=== PATIENT | male | born 1950 | race Caucasian/White ===

== ENCOUNTER 2024-12-20 17:09 | Emergency (ER) | payer MEDICARE, SELFPAY ==
--- OUTSIDE RECORDS SUMMARY | 2024-12-20 17:17 | XMS_ITS | Encounter Summary ---
Author Organization [facility] Address [address] [facility] [place] [address] Care Team Providers Care Geoduck Diver Name Role Phone Jr Morgan MD Primary Care Provider [phone] Encounter Details Date Type Department Care Team (Late st Contact Info) Description 03/07/2020 Lab Requisition [facility] D[facility] Lab [address] [facility], [place] [address] Gene Reardon [place] [address] Social History Tobacco Use Types Packs/Day Years Used Date Smoking Tobacco: Never Smokeless Tobacco: Never Alcohol Use Standard Drinks/Week Comments Yes 0 (1 standard drink = 0.6 oz pur e alcohol) Sex and Gender Information Value Date Recorded Sex Assigned at Not on file Gender Identity Not on file Sexual Orientation Not on file documented as of this encounter Plan of Treatment Not on file documented as of this encounter Procedures Procedure Name Priority Date/Time Associated Diagnosis Comments DERMATOPATHOLOGY Routine 03/06/2020 12:0 0 AM CDT documented in this encounter Results * DERMATOPATHOLOGY (03/06/2020 12:00 AM CDT) Case Report Dermatopathology Report Case: [id number] Authorizing Provider: Gene Reardon MD Collected: 03/06/2020 12:00 AM Ordering Location: [facility] Derm[facility] Lab Received: 03/07/2020 01:08 PM Pathologist: Ama Bridges MD Specimen: Skin, left frontal temporal scalp 0 4:14 PM CDT DERMATOPATHOLOGY LABORATORY Final Diagnosis Specimen A. SKIN, left frontal temporal scalp: DERMAL FIBROSIS (L90.5) (see microscopic description) 0 4:14 PM CDT DERMATOPATHOLOGY LABORATORY Clinical History R/O SCC,Ba 0 4:14 PM CDT DERMATOPATHOLOGY LABORATORY Gross Description Specimen A: Received is one formalin filled container labeled with the patient's name and designated left frontal temporal scalp. The specimen consists of a shave biopsy measuring 5x5x1 mm. Jar 0. 0 4:14 PM CDT DERMATOPATHOLOGY LABORATORY Microscopic Description Specimen A. SKIN, left frontal temporal scalp: The epidermis is unremarkable. There is focal dermal fibrosis. Tumor is not present in the sections examined. Additional deeper sections were obtained and reviewed. 0 4:14 PM CDT DERMATOPATHOLOGY LABORATORY Disclaimer An external and internal positive and negative controls are appropriate for the histochemical, immunohistochemical and immunofluorescence stain(s) in this case (if any), except where stated explicitly. The performance characteristics of the stain(s) cited in this report were developed and its performance characteristic determined by the Dermatopathology Laboratory at [facility], directed by Dr. Yang Bridges. These tests need not be, and therefore are not, approved by the [place] Food and Drug Administration. The tests are used for clinical purposes. Billing Codes Specimen Charges Stain Charges 64477 1 0 4:14 PM CDT DERMATOPATHOLOGY LABORATORY Embedded Images 0 4:14 PM CDT DERMATOPATHOLOGY LABORATORY Pathology/Cytolog y TISSUE SPECIMEN FROM SKIN / Unknown 03/06/2020 03/07/2020 1:08 PM CDT Gene Reardon MD LAB - PATHOLOGY/CYTO LOGY ORDERABLES DERMATOPATHOLOGY LABORATORY [facility] - Department of Dermatology Sprinkler Worker [place]/[address] [phone] documented in this encounter Visit Diagnoses Not on filedocumented in this encounter Care Teams Geoduck Diver Relationship Specialty Start Date End Date Jr Morgan MD PCP - General 08/27/18 documented as of this encounter
--- OUTSIDE RECORDS SUMMARY | 2024-12-20 17:17 | XMS_ITS | Encounter Summary ---
Author Organization [facility] Address [address] [place] [address] Care Team Providers Care Telephone Solicitor Supervisor Name Role Phone Jr Morgan MD Primary Care Provider [phone] Encounter Details Date Type Department Care Team (Late st Contact Info) Description 02/26/2006 Outpatient [facility] [place] [address] [place] [address] Star Hickman MD [address] [place] [address] Social History Tobacco Use Types Packs/Day Years Used Date Smoking Tobacco: Never Assessed Sex and Gender Information Value Date Recorded Sex Assigned at Not on file Legal Sex Male 2:57 AM TRACK HELPER Gender Identity Not on file Sexual Orientation Not on file documented as of this encounter Plan of Treatment Upcoming Encounters Date Type Department Care Team (Late st Contact Info) Description 01/09/2025 1:00 PM CDT Appointment [facility] Supp Svcs Blood Flow [address] [place] [address] Dutch oCx MD [address] [facility] [address] [place] [address] 01/09/2025 1:45 PM CDT [facility] [address] [facility] [address] [place] [address] Dutch Cox MD [address] [facility] [address] [place] [address] 02/23/2025 9:00 AM CDT Office Visit [facility] [address] [facility] [facility] [place] [address] Lazaro Jones MD [address] [place] [address] 03/02/2025 9:40 AM CDT Office Visit [facility] Primary [facility] [address] [place] [address] [address] [place] [address] Jr Morgan MD [address] [facility] [address] [place] [address] documented as of this encounter Visit Diagnoses Not on filedocumented in this encounter Additional Health Concerns Infection Onset Date Last Indicated Resolved Time R/O COVID-19 09/18/2021 09/18/2021 09/25/2021 1:16 AM TRACK HELPER documented as of this encounter Care Teams Telephone Solicitor Supervisor Relationship Specialty Start Date End Date Jr Morgan MD PCP - General Internal Medicine 06/28/18 documented as of this encounter
--- OUTSIDE RECORDS SUMMARY | 2024-12-20 17:17 | XMS_ITS | Clinical Summary ---
Author Organization [facility] [employer] Address [address] [place] [address] Care Team Providers Care Digital Communications Manager Name Role Phone Jr Morgan MD Primary Care Provider [phone] Source Comments [facility],non-owned Affiliates and Associated Physician Practices is amultiple site organization consisting of ambulatory clinics and hospital sitesin [place], [place], [place] and [place]. This disclosure is being madepursuant to the Care Everywhere program and may not contain all information available regarding this patient. Last updated 18.[facility] [employer] Allergies Active Allergy Reactions Criticality Noted Date Comments Captopril Swelling,Other Low 05/02/2015 Tizanidine Dizziness 05/27/2018 Caused him to have nightmares after surgery Medications * Be aware that medications may not be up to date on this document. Alwaysverify current medications with the patient. Medication Sig Dispensed Refills Start Date End Date Status acetaminophen (TYLENOL) 500 MG tablet Take 1,000 mg by mouth. 08/21/2017 Active loratadine (CLARITIN) 10 MG tablet Take 10 mg by mouth. 08/21/2017 Active aspirin (ASPIRIN) 325 MG tablet Take 81 mg by mouth Active atorvastatin (LIPITOR) 40 MG tablet TAKE 1 TABLET BY MOUTH LATE IN THE DAILY 07/04/2019 Active diazePAM (VALIUM) 5 MG tablet TAKE 1 OR 2 TABLETS BY MOUTH 4 TIMES DAILY NEEDED FOR MUSCLE SPASM 06/10/2019 Active fluticasone propionate (FLONASE) 50 MCG/ACT nasal spray 1-2 Sprays by Nasal route daily. Use in each nostril as directed. Active LORazepam (ATIVAN) 1 MG tablet TAKE 1 TABLET BY MOUTH EVERY 8 HOURS NEEDED FOR ANXIETY 09/19/2018 Active metoprolol tartrate (LOPRESSOR) 50 MG tablet Take 50 mg by mouth 2 times daily 11/18/2018 Active amLODIPine (NORVASC) 5 MG tablet Take 1 (one) tablet by mouth once daily 04/29/2021 Active clopidogrel (PLAVIX) 75 MG tablet Take 1 (one) tablet by mouth once daily 05/31/2021 Active ezetimibe (Zetia) 10 MG tablet Take 1 (one) tablet by mouth once daily 08/15/2022 Active nitroGLYCERIN (Nitrostat) 0.4 MG tablet Dissolve 1 (one) tablet under the tongue every 5 minutes as needed 12/26/2021 Active atorvastatin (Lipitor) 40 MG tablet Take 1 (one) tablet by mouth once daily 07/22/2022 Active LORazepam (Ativan) 1 MG tablet Take 1 (one) tablet by mouth every 8 hours as needed 02/03/2022 Active PARoxetine (Paxil) 30 MG tablet Take 1 (one) tablet by mouth once daily 03/12/2021 Active tamsulosin (Flomax) 0.4 MG capsuleIndication s:Benign prostatic hyperplasia without lower urinary tract symptoms Take 1 capsule by mouth twice daily 180 capsule 12/19/2024 Active tamsulosin (Flomax) 0.4 MG capsuleIndication s:Benign prostatic hyperplasia without lower urinary tract symptoms Take 1 capsule by mouth twice daily 180 capsule 06/27/2024 5 Discontinued Active Problems Problem Noted Date Diagnosed Date Enlarged prostate without lo wer urinary tract symptoms (luts) 04/08/2017 Overview (12/14/2017): ICD-10 update Encounters Date Type Department Care Team Description 12/17/2024 Refill [facility] - Urology [address] [place] [address] Zainab Becerril, DEVIL DOG-MORTGAGE SERVICING SPECIALIST Refill Request from Last 3 Months Immunizations Name Administration Dates Next Due INFLUENZA VACCINE, TRIV. (AF LURIA, FLUZONE TRIVALENT; 6MO+) (IIV3) 04/29/2019,06/26/2017,09/14/2013 COVID PFIZER BIVALENT 12Y+ 30mcg/0.3ML 06/16/2022 Covid Moderna primary monova lent 12+ yr 0.5mL 12/30/2021,07/07/2021,11/29/2020,2020 HEP A VACCINE, ADULT 02/04/2006,05/27/2005 HEP B VACCINE, ADULT 3 DOSE 02/04/2006, 5 INFLUENZA A [id number] VACCINE 06/22/2017, 5 INFLUENZA VACCINE 05/29/2020,05/29/2020,09/14/19 14 INFLUENZA VACCINE, ADJUVANTE D, TRIV. (FLUAD TRIVALENT; 65Y+) (AIIV3) 04/29/2019 INFLUENZA VACCINE, HIGH-DOSE , QUADR. (FLUZONE HIGH-DOSE QUADRIVALENT; 65Y+), 0.7 ML (HD-IIV4) 06/16/2022,07/24/2021,05/24/2020,2017,06/02/2016,07/02/2015 INFLUENZA VACCINE, QUADR. (F LUZONE; FLULAVAL; FLUARIX; AFLURIA QUADRIVALENT; 6MO+), 0.5 ML (IIV4) 07/09/2017 PNEUMOCOCCAL PCV20 CONJ VAC IM 12/30/2021 PNEUMOCOCCAL PPSV23 07/25/2019,09/14/2011,2010 Pneumococcal Pcv13 Conj 06/02/2016 Td (Adult), 2 Lf Tetanus Tox oid, Adsorbed, Pf 09/14/2014,05/27/2005 Zoster Hzv Vacc Recombinant Inj Im 08/27/2018,,05/29/2018 Family History Medical History Relation Name Comments Other - Cardiac Father Status: Dece ased Other - Cardiac Mother Status: Dece ased Relation Name Status Comments Father Mother Social History Tobacco Use Types Packs/Day Years Used Date Smoking Tobacco: Never Smokeless Tobacco: Never Tobacco Cessation:Counseling Given: Not Answered Alcohol Use Standard Drinks/Week Comments Yes 0 (1 standard drink = 0.6 oz pur e alcohol) Sex and Gender Information Value Date Recorded Sex Assigned at Not on file Gender Identity Not on file Sexual Orientation Not on file Last Filed Vital Signs Vital Sign Reading Time Taken Comments Blood Pressure 133/77 08/22/2022 11:40 AM EMISSIONS TESTING AND REPAIR TECHNICIAN Pulse 52 08/22/2022 11:40 AM EMISSIONS TESTING AND REPAIR TECHNICIAN Temperature 36.9 C (98.4 F) 08/22/2022 11:40 AM EMISSIONS TESTING AND REPAIR TECHNICIAN Respiratory Rate 16 08/24/2020 10:15 AM EMISSIONS TESTING AND REPAIR TECHNICIAN Oxygen Saturation 97% 08/22/2022 11:40 AM EMISSIONS TESTING AND REPAIR TECHNICIAN Inhaled Oxygen Concentration - - Weight 82.2 kg (181 lb 3.2 oz) 08/22/2022 11:40 AM EMISSIONS TESTING AND REPAIR TECHNICIAN Height 170.2 cm (5' 7 ) 08/22/2022 11:40 AM EMISSIONS TESTING AND REPAIR TECHNICIAN Body Mass Index 28.38 08/22/2022 11:40 AM EMISSIONS TESTING AND REPAIR TECHNICIAN Plan of Treatment Health Maintenance Due Date Last Done Comments COLOGUARD (AGES 45-75) - COLON CA SCREENING 1950 COLON MONITORING 1950 COLONOSCOPY - COLON CA SCREENING 1949 CT COLONOGRAPHY - COLON CA SCREENING 1950 Colorectal Cancer Screening 1950 FIT - COLON CA SCREENING 1950 FLEX SIG - COLON CA SCREENING 1950 HEPATITIS C SCREENING 10/17/1967 HEPATITIS B VACCINE (3 of 3 - 19+ 3-dose series) 04/01/2006 02/04/2006, 05/27/2005 DTAP/TDAP/TD VACCINES (1 - Tdap) 09/15/2014 09/14/2014, 05/27/2005 SCREENING FOR DIABETES 08/27/2018 COVID-19 VACCINE ( season) 2024 06/16/2022, 12/30/2021, 07/07/2021, Additional history exists DEPRESSION SCREENING 09/14/2024 MEDICARE AWV CALENDAR YEAR 2024 Respiratory Syncytial Virus (RSV) Vaccine Pt: or over 60 yrs (1 - 1-dose 75+ series) 2024 INFLUENZA VACCINE (Season Ended) 2025 06/16/2022, 07/24/2021, 05/29/2020, Additional history exists ZOSTER VACCINE Completed 08/27/2018, 08/14, 05/29/2018 PNEUMOCOCCAL VACCINE 50+ Completed 022, 07/25/2019, 06/02/2016, Additional history exists HIB VACCINE Aged Out No longer eligi ble based on patient's age to complete this topic HPV VACCINE Aged Out No longer eligi ble based on patient's age to complete this topic MENINGOCOCCAL (Group B) VACCINE SHARED DECISION-MAKING Aged Out No longer eligible based on patient's age to complete this topic MENINGOCOCCAL GROUPS A/C/Y/W VACCINE Aged Out No longer eligible based on patient's age to complete this topic Care Teams Digital Communications Manager Relationship Specialty Start Date End Date Jr Morgan MD PCP - General 08/27/18
--- OUTSIDE RECORDS SUMMARY | 2024-12-20 17:17 | XMS_ITS | Encounter Summary ---
Author Organization [facility] Address [address] [place] [address] Care Team Providers Care Patient Office Rep Name Role Phone Jr Morgan MD Primary Care Provider [phone] Encounter Details Date Type Department Care Team (Late st Contact Info) Description 02/20/2006 Outpatient Historical [facility] [address] [facility] [place] [address] Phani Sampson MD NO ADDRESS ON FILE Social History Tobacco Use Types Packs/Day Years Used Date Smoking Tobacco: Never Assessed Sex and Gender Information Value Date Recorded Sex Assigned at Not on file Legal Sex Male 2:57 AM SHANKER OUT Gender Identity Not on file Sexual Orientation Not on file documented as of this encounter Plan of Treatment Upcoming Encounters Date Type Department Care Team (Late st Contact Info) Description 01/09/2025 1:00 PM CDT Appointment [facility] Supp Svcs Blood Flow [place] [address] Dutch Cox MD [address] [address] 01/09/2025 1:45 PM CDT Office Visit [facility] [employer] [place] [address] [facility] [address] [place] [address] Dutch Cox MD [address] [address] 02/23/2025 9:00 AM CDT Office Visit [facility] At [facility] [address] [place] [address] Lazaro Jones MD [address] [place] [address] 03/02/2025 9:40 AM CDT Office Visit [facility] Primary Care [facility] [address] [facility] [address] [place] [address] Jr Morgan MD [address] [facility] [address] [place] [address] documented as of this encounter Visit Diagnoses Not on filedocumented in this encounter Additional Health Concerns Infection Onset Date Last Indicated Resolved Time R/O COVID-19 09/18/2021 09/18/2021 09/25/2021 1:16 AM SHANKER OUT documented as of this encounter Care Teams Patient Office Rep Relationship Specialty Start Date End Date Jr Morgan MD PCP - General Internal Medicine 06/28/18 documented as of this encounter
--- OUTSIDE RECORDS SUMMARY | 2024-12-20 17:17 | XMS_ITS | Clinical Summary ---
Author Organization [facility] Address [address] [facility], [address] [address] Phone Care Team Providers Care Metallographic Technician Name Role Phone Jr Morgan MD Primary Care Provider [phone] Allergies Active Allergy Reactions Criticality Noted Date Comments Captopril Swelling,Other (see Comments) Low 05/02/2015 Other Unknown SEASONAL ALLERGIES Medications tamsulosin (FLOMAX) 0.4 MG Capsule Take 0.4 mg by mouth every morning and at bedtime. 6 Active acetaminophen (TYLENOL) 500 MG Tablet Take 1,000 mg by mouth every 4 hours as needed. Active loratadine (CLARITIN) 10 MG Tablet Take 10 mg by mouth daily. Active Cholecalciferol (VITAMIN D3) 1000 units Capsule Take 1,000 mg by mouth daily. Active FENOFIBRATE 160 MG TabletIndications:H yperlipidemia, unspecified hyperlipidemia type TAKE ONE TABLET BY MOUTH ONCE DAILY 90 Tab 3 8 Active aspirin 325 MG Tablet Take 325 mg by mouth daily. Active nitroGLYCERIN (NITROSTAT) 0.4 MG SL Tablet 8 Active HYDROcodone-acetami nophen (NORCO) 5-325 MG Tablet 1-2 tabs every 4 hours as needed for pain. 8 Active simvastatin (ZOCOR) 40 MG Tablet TAKE ONE TABLET BY MOUTH ONCE DAILY IN THE EVENING 90 Tab 3 8 Active metoprolol tartrate (LOPRESSOR) 50 MG Tablet TAKE ONE TABLET BY MOUTH TWICE DAILY 180 Tab 2 8 Active PARoxetine (PAXIL) 20 MG Tablet TAKE 1 TABLET BY MOUTH ONCE DAILY 90 Tab 8 Active gabapentin (NEURONTIN) 300 MG Capsule Take 300 mg by mouth 3 times daily. Active atorvastatin (LIPITOR) 40 MG Tablet Take 40 mg by mouth daily. Active fluticasone (FLONASE) 50 MCG/ACT Suspension 1-2 Sprays by Nasal route daily. Use in each nostril as directed. Active Ergocalciferol (VITAMIN D2 PO) Take by mouth. Active hydroCHLOROthiazide 25 MG Tablet Take 25 mg by mouth daily. Active LORazepam (ATIVAN) 1 MG Tablet Take 1 Tab by mouth 3 times daily as needed for Anxiety. 12 Tab 9 Active Active Problems Problem Noted Date Diagnosed Date H/O carotid endarterectomy 01/07/2018 CAD S/P percutaneous coronary angioplasty 2017 H/O: stroke 01/07/2018 DDD (degenerative disc disease), lumbar 07/09/20 17 Benign prostatic hyperplasia with lower urinary tract symptoms 07/09/2017 HTN (hypertension) HLD (hyperlipidemia) Anxiety and depression CKD (chronic kidney disease) Prediabetes Immunizations Immunization Administration Dates Next Due Hepatitis A Vaccine 02/04/2006,05/27/2005 Hepatitis B Vaccine 02/04/2006,05/27/2005 Influenza Vaccine greater than 3 yrs 06/26/2017, 09/14/2013 Influenza Vaccine, Quadrivalent, PF 07/09/2017 Influenza, Seasonal, Injectable, Undefined 09/14 Influenza, high-dose, trivalent, PF 06/02/2016,1 07/02/2016 PUR FLU HIGH DOSE (FLUZONE) 06/02/2016 PUR PCV-13 06/02/2016 Pneumococcal Vaccine - 13 Valent 06/02/2016 Pneumococcal Vaccine Adult - 23 Valent 1 TD VACCINE 09/14/2014,05/27/2005 Family History Medical History Relation Name Comments Alcohol Abuse Father Ulcerative Colitis Father Cancer Maternal Aunt ? Alcohol Abuse Mother Chronic Obstructive Pulmonary Disease Mother Heart Attack Mother Relation Name Status Comments Father Maternal Aunt Mother Social History Tobacco Use Types Packs/Day Years Used Date Smoking Tobacco: Former Pipe Q uit: 11/02/1966 Smokeless Tobacco: Never Tobacco Cessation:Counseling Given: No Comments:quit 1966 Alcohol Use Standard Drinks/Week Comments No 0 (1 standard drink = 0.6 oz pur e alcohol) Sex and Gender Information Value Date Recorded Sex Assigned at Not on file Legal Sex Male 11:10 PM CDT Gender Identity Not on file Sexual Orientation Not on file Last Filed Vital Signs Vital Sign Reading Time Taken Comments Blood Pressure 131/66 09/19/2018 12:44 PM LOAN SERVICING OFFICER Pulse 60 09/19/2018 12:44 PM LOAN SERVICING OFFICER Temperature 36.5 C (97.7 F) 09/19/2018 9:56 AM LOAN SERVICING OFFICER Respiratory Rate 18 09/19/2018 12:44 PM LOAN SERVICING OFFICER Oxygen Saturation 94% 09/19/2018 12:44 PM LOAN SERVICING OFFICER Inhaled Oxygen Concentration - - Weight 81.6 kg (180 lb) 09/19/2018 9:56 AM LOAN SERVICING OFFICER Height 170.2 cm (5' 7 ) 09/19/2018 9:56 AM LOAN SERVICING OFFICER Body Mass Index 28.19 09/19/2018 9:56 AM LOAN SERVICING OFFICER Plan of Treatment Health Maintenance Due Date Last Done Comments Hepatitis C Virus (HCV) Screening 1950 TdaP Immunization 1950 Cologuard 1999 Hepatitis B Immunization (3 of 3 - 19+ 3-dose series) 04/01/2006 02/04/2006, 05/27/2005 Immunochemical Fecal Occult Blood 08/19/2017 08/19/2016 Zoster Immunization (2 of 2) 07/24/2018 05/29/2018 Pneumococcal Immunization (50+ years) (3 of 3 - PCV20 or PCV21) 06/02/2021 06/02/2016, 06/02/2016, 09/14/2010 Influenza Immunization (#1) 05/15/202406/15, 06/26/2017, 06/02/2016, Additional history exists SARS-COV-2 Immunization ( - season) 2024 12/30/2021, 07/07/2021, 11/30/2020, Additional history exists Respiratory Syncytial Virus (RSV) Immunization (Adult) (1 - 1-dose 75+ series) 2024 Colonoscopy 11/02/2027 11/02/2017 Colorectal Cancer Screening 11/02/2027 11/02/2017 Pneumococcal Immunization Combined Discontinued 06/02/2016, 06/02/2016, 09/14/2010 Meningococcal Immunization (ACWY) Aged Out No longer eligible based on patient's age to complete this topic Rotavirus Immunization Aged Out No lo nger eligible based on patient's age to complete this topic Procedures Procedure Name Priority Date/Time Associated Diagnosis Comments STOOL, OCCULT BLOOD IMMUNOAS SAY (IFOB) Routine 08/19/2016 from Last 3 Months or Most Recently Relevant to Health Maintenance Results * STOOL, OCCULT BLOOD IMMUNOASSAY (IFOB) (08/19/2016) Specimen of unknown material (specimen) STOOL SPECIMEN / Unknown us Mayda Murguia MD BODY FLUIDS & STOOLS ORDERAB LES Final Result from Last 3 Months or Most Recently Relevant to Health Maintenance Care Teams Metallographic Technician Relationship Specialty Start Date End Date Jr Morgan MD [address] [place] [address] PCP - General 09/19/18
--- OUTSIDE RECORDS SUMMARY | 2024-12-20 17:17 | XMS_ITS | Encounter Summary ---
Author Organization [facility] Address [address] [address] [place] [address] Care Team Providers Care Machinist Helper Name Role Phone Jr Morgan MD Primary Care Provider [phone] Encounter Details Date Type Department Care Team (Latest Contact Info) Description 11/15/2020 Research Encounter [facility] [place] [address] [place] [address] Jack Davey RN Carotid atherosclerosis, unspecified laterality (Primary Dx) Social History Tobacco Use Types Packs/Day Years Used Date Smoking Tobacco: Never Smokeless Tobacco: Never Alcohol Use Standard Drinks/Week Comments Yes 5 (1 standard drink = 0.6 oz pur e alcohol) Social Connections Answer Date Recorded In a typical week, how many times do you talk on the phone with family, friends, or neighbors? More than three times a week 11/23/2019 How often do you get togethe r with friends or relatives? More than three times a week 11/23/2019 How often do you attend chur ch or methodist services? Never 11/23/2019 Do you belong to any clubs o r organizations such as yazidi groups, unions, fraternal or athletic groups, or school groups? No 11/23/2019 How often do you attend meet ings of the clubs or organizations you belong to? Never 11/23/2019 Are you , , di vorced, , never , or living with a partner? 11/23/2019 Financial Resource Strain Answer Date R ecorded How hard is it for you to pa y for the very basics like food, housing, medical care, and heating? Not hard at all 11/23/2019 Food Insecurity Answer Date Recorded Within the past 12 months, y ou worried that your food would run out before you got the money to buy more. Never true 11/23/19 20 Within the past 12 months, t he food you bought just didn't last and you didn't have money to get more. Never true 11/23/2019 Transportation Needs Answer Date Record ed In the past 12 months, has l ack of transportation kept you from medical appointments or from getting medications? No 11/12 In the past 12 months, has l ack of transportation kept you from meetings, work, or from getting things needed for daily living? No 11/23/2019 Sex and Gender Information Value Date Recorded Sex Assigned at Not on file Legal Sex Male 2:57 AM HYDROMETEOROLOGICAL TECHNICIAN Gender Identity Not on file Sexual Orientation Not on file Occupation Industry Job Start Date Job End Date RETIRED Not on file Not on file Not on file COVID-19 Exposure Response Date Recorded In the last month, have you been in contact with someone who was confirmed or suspected to have Coronavirus / COVID-19? No / Unsure 11/08/2020 12:47 PM HYDROMETEOROLOGICAL TECHNICIAN documented as of this encounter Plan of Treatment Upcoming Encounters Date Type Department Care Team (Late st Contact Info) Description 01/09/2025 1:00 PM CDT Appointment [facility] Blood Flow [address] [place] [phone] Dutch Cox MD [facility] [address] [address] 01/09/2025 1:45 PM CDT Office Visit [facility] [place] [address] [address] Dutch Cox MD [facility] [address] [address] 02/23/2025 9:00 AM CDT Office Visit [facility] At [address] [place] [address] Lazaro Jones MD [address] [facility] [address] [place] [phone] 03/02/2025 9:40 AM CDT Office Visit [facility] Primary Care [facility] [address] [place] [address] [address] [place] [address] Jr Morgan MD [address] [facility] [address] [place] [address] documented as of this encounter Visit Diagnoses Diagnosis Carotid atherosclerosis, unspecified laterality- Primary documented in this encounter Additional Health Concerns Infection Onset Date Last Indicated Resolved Time R/O COVID-19 09/18/2021 09/18/2021 09/25/2021 1:16 AM HYDROMETEOROLOGICAL TECHNICIAN documented as of this encounter Care Teams Machinist Helper Relationship Specialty Start Date End Date Jr Morgan MD PCP - General Internal Medicine 06/28/18 documented as of this encounter
--- OUTSIDE RECORDS SUMMARY | 2024-12-20 17:17 | XMS_ITS | Clinical Summary ---
Author Organization [facility] Address [address] [facility] [place] [address] Phone Care Team Providers Care Software Developer Intern Name Role Phone Jr Morgan MD Primary Care Provider [phone] Allergies Active Allergy Reactions Criticality Noted Date Comments Captopril Swelling Low 02/06/2010 Poison Alethea Extract Rash Low 02/27/2023 Tizanidine Other (See Comments) 05/27/2018 Caused him to have nightmares after surgery Medications tamsulosin (FLOMAX) 0.4 mg capsule Take 0.4 mg by mouth 2 times daily. Is taking as of 08/18/24 Active loratadine (CLARITIN) 10 mg tablet Take 10 mg by mouth daily. Active ERGOCALCIFEROL, VITAMIN D2, (VITAMIN D ORAL) Take by mouth. Active methylPREDNISolone (MEDROL DOSPACK) 4 mg Tablets, Dose Pack As directed 21 Tablet 02/28/20 23 Active triamcinolone acetonide (KENALOG) 0.1 % Cream Apply to affected area 2 times daily. 80 Gram 1 02/28/20 23 Active amLODIPine (NORVASC) 2.5 mg tablet Take 1 Tablet (2.5 mg) by mouth daily. 90 Tablet 3 05/19/20 23 Active nitroglycerin (Nitrolingual) 400 mcg/spray [place], Non-AerosolIndicat ions:Chest pain, unspecified type Place 1 [place] under tongue every 5 minutes as needed for Chest Pain (not to exceed 3 doses in 1 day). 4.9 Gram 1 06/01/20 23 Active gabapentin (NEURONTIN) 300 mg capsule Take 1 Capsule (300 mg) by mouth 3 times daily. 60 Capsule 3 02/16/20 24 Active Additional Information Patient taking differently:300 mg Oral THREE TIMES DAILY,Not taking, Reported on 08/18/2024 methylPREDNISolone (MEDROL DOSPACK) 4 mg Tablets, Dose Pack use as directed 21 Tablet 02/24/20 24 Active metoprolol tartrate (LOPRESSOR) 50 mg tablet Take 1 Tablet (50 mg) by mouth 2 times daily. 180 Tablet 3 04/16/20 24 Active PARoxetine HCl (PAXIL) 40 mg tabletIndications: LEA (generalized anxiety disorder) Take 1 Tablet (40 mg) by mouth daily. 100 Tablet 3 05/10/20 24 Active atorvastatin (LIPITOR) 40 mg tablet Take 1 tablet by mouth once daily 90 Tablet 3 06/09/20 24 Active clopidogreL (PLAVIX) 75 mg Tablet Take 1 tablet by mouth once daily 90 Tablet 3 08/22/20 24 Active levothyroxine 25 mcg tablet TAKE 1 TABLET BY MOUTH ONCE DAILY IN THE MORNING 90 Tablet 3 09/13/20 24 Active LORazepam (ATIVAN) 1 mg tabletIndications: LEA (generalized anxiety disorder) TAKE 1 TABLET BY MOUTH EVERY 8 HOURS NEEDED FOR ANXIETY 60 Tablet 3 09/16/19 25 Active oxyCODONE-acetamin ophen (PERCOCET) 10-325 mg TabletIndications: Osteoarthritis of spine with radiculopathy, lumbar region Take 1 Tablet by mouth every 4 hours as needed for Pain, Severe. djd spine Max Daily Amount: 6 Tablets 42 Tablet 09/17/19 25 Active ezetimibe (ZETIA) 10 mg tabletIndications: Mixed hyperlipidemia Take 1 tablet by mouth once daily 90 Tablet 3 11/10/19 25 Active Active Problems Patient Care Coordination No te Formatting of this note migh t be different from the original. Lazaro Jones MD--Alum Plant Supervisor ([facility] @ ) [id number] 08/17/24 Problem Noted Date Diagnosed Date PAD (peripheral artery disease) 08/18/2024 Other specified hypothyroidism 08/29/2022 Anxiety and depression 02/27/2021 CKD (chronic kidney disease) 08/24/2019 Osteoarthritis of spine with radiculopathy, lumb ar region 10/16/2018 Asymptomatic stenosis of rig ht carotid artery without infarction 10/24/2017 Coronary artery disease invo lving big sandy coronary artery of [place] sandy heart without angina pectoris 02/06/2010 Old [place] (myocardial infarction) 02/06/2010 Essential hypertension, benign 02/06/2010 HLD (hyperlipidemia) 02/06/2010 H/O: CVA 02/06/2010 Resolved Problems Problem Noted Date Diagnosed Date Resolved Date Chest pain 05/09/2021 08/29/2021 Encounters Date Type Department Care Team Description 11/10/2024 [address]ill [facility] Primary Care [address] [place] [address] Jr Morgan MD Mixed hyperlipidemia 11/02/2024 External Device Data STL ABSTRACTION Provider, Abstract 10/18/2024 External Device Data STL ABSTRACTION Provider, Abstract 10/11/2024 External Device Data STL ABSTRACTION Provider, Abstract from Last 3 Months Immunizations Immunization Administration Dates Next Due (AREXVY)(60 YR UP) RSV, PABLITO MBINANT, PROTEIN SUBUNIT RSVPREF, ADJUVANT RECONSTITUTED, 0.5 ML, PF 07/10/2023 (PNEUMOVAX 23)(50 YRS UP) PN EUMOCOCCAL POLYSACCHARIDE (PPV23) 0.5 ML, IM 07/25/2019 (PREVNAR 13)(6 WKS UP) PNEUM OCOCCAL CONJUGATE (PCV13) 0.5 ML, IM 06/02/2016 (PREVNAR 20)(6 WKS UP) PNEUM OCOCCAL CONJUGATE VACCINE 20-VALENT (PCV20), POLYSACCHARIDE [id number] CONJUGATE, ADJUVANT 0.5 ML (PF) IM 12/30/2021 (Pfizer Bivalent)(12 Yr Up) COVID-19 Vaccine - Emergency Use Authorization, MRNA, Lnp-S(Pf) 30 Mcg/0.3 Ml Susp 06/16/2022 (SHINGRIX)(50 YRS UP) ZOSTER VACCINE RECOMBINANT, 0.5 ML, IM 08/26/2018,05/29/2018 (SPIKEVAX) (12 YRS UP PRIMAR Y SERIES) COVID-19 VACCINE - MRNA-1273(PF) 100 MCG/0.5 ML IM SUSP 07/24/2023,12/30/2021,07/07/2021,11/29,11/01/2020 (TDVAX)(7 YRS UP) TETANUS AN D DIPHTHERIA TOXOIDS, ADSORBED (2 LF OF TETANUS TOXOID AND 2 LF OF DIPHTHERIA TOXOID), 0.5ML (PF), IM 09/14/2014,05/27/2005 Hepatitis A Vaccine 02/04/2006,05/27/2005 Hepatitis B Vaccine 02/04/2006,05/27/2005 INFLUENZA VACCINE HIGH DOSE QUADRIVALENT 65 YR UP PF IM 07/17/2023,05/24/2020 INFLUENZA VACCINE HIGH DOSE TRIVALENT SPLIT VIRUS, (65 YR UP), 0.5ML (PF), IM 07/01/2024 Influenza Seasonal Unspecifi ed Formulation IM 04/29/2019,06/26/2017 Influenza Vaccine High Dose 65+ Yrs IM 1 ,07/24/2021,06/28/2018,06/02,07/02/2015 Influenza Vaccine Tri Split 4+ Im 09/14/2013 Pneumococcal Polysaccharide Vacc 23-gil IM SCHIP 09/14/2010 Family History Medical History Relation Name Comments Unknown Brother 1 Other Brother 2 Heart Attack Father Frankie Hoyt heavy smoker, drinker Ulcers Father Frankie Hoyt Heart Attack Mother Radha Richards Heart Disease Mother Radha Richards bypass, twice Respiratory Disease Mother Radha Richards Healthy Sister 1 Healthy Sister 2 Relation Name Status Comments Brother 1 Alive Brother 2 Father Frankie Hoyt Maternal Grandfather Maternal Grandmother Mother Radha Richards Paternal Grandfather Paternal Grandmother Sister 1 Alive Sister 2 Alive Social History Tobacco Use Types Packs/Day Years Used Date Smoking Tobacco: Never Passive Smoke Exposure: Never Smokeless Tobacco: Never Tobacco Cessation:Counseling Given: Not Answered Alcohol Use Standard Drinks/Week Comments Yes 2 (1 standard drink = 0.6 oz pur [...] often do you attend chur ch or confucianism services? Never 11/23/2019 Do you belong to any clubs o r organizations such as hinduism groups, unions, fraternal or athletic groups, or [...] care, and heating? Not hard at all 02/27/2022 Food Insecurity Answer Date Recorded In the past 12 months, have you worried that your food would run out before you had money to buy more? Never true 02/27/2022 In the past 12 months, did y ou run out of food and didn't have money to buy more? Never true 02/27/2022 Transportation Needs Answer Date Record ed In the past 12 months, has l ack of transportation kept you from medical appointments or from getting medications? No 02/27/2022 Lack of Transportation (Non-Medical) Not on file 02/27/2022 Sex and Gender Information Value Date Recorded Sex Assigned at Not on file Legal Sex Male 2:57 AM GRADE SETTER Gender Identity Not on file Sexual Orientation Not on file Occupation Industry Job Start Date Job End Date RETIRED Not on file Not on file Not on file Last Filed Vital Signs Vital Sign Reading Time Taken Comments Blood Pressure 100/60 08/18/2024 10:15 AM GRADE SETTER Pulse 53 08/18/2024 10:15 AM GRADE SETTER Temperature 36.5 C (97.7 F) 09/02/2023 11:04 AM GRADE SETTER Respiratory Rate 16 09/02/2023 11:04 AM GRADE SETTER Oxygen Saturation 98% 08/18/2024 10:15 AM GRADE SETTER Inhaled Oxygen Concentration - - Weight 80.3 kg (177 lb) 08/18/2024 10:15 AM GRADE SETTER Height 170.2 cm (5' 7 ) 08/18/2024 10:15 AM GRADE SETTER Body Mass Index 27.72 08/18/2024 10:15 AM GRADE SETTER Plan of Treatment Upcoming Encounters Date Type Department Care Team (Late st Contact Info) Description 01/09/2025 1:00 PM CDT Appointment [facility] Supp Svcs Blood Flow [address] [place] [address] Dutch Cox MD [address] [facility] [address] [place] [address] 01/09/2025 1:45 PM CDT Office [facility] [address] [facility] [address] [place] [phone] Dutch Cox MD [address] [facility] [address] [place] [address] 02/23/2025 9:00 AM CDT Office Visit [facility] Heart and Vascular At [facility] [address] [facility] [address] [place] [address] Lazaro Jones MD [address] [facility] [address] [place] [address] 03/02/2025 9:40 AM CDT Office Visit [facility] Primary Care [facility] [address] [facility] [address] [place] [address] Jr Morgan MD [address] [facility] [address] [place] [address] Health Maintenance Due Date Last Done Comments FIT/ DNA Q 3 YEARS (AUTO ORDER) 1967 FIT/FOBT Q 1 YEAR (AUTO ORDER) 1967 FIT-DNA Q 3 years 1994 FIT/FOBT Q 1 year 1994 Flex Sig/CT Colonography Q 5 years 1994 DTAP/TDAP/TD VACCINES (1 - Tdap) 09/15/2014 09/14/19 15, 05/27/2005 FLEX SIG/CT COLONOGRAPHY Q 5 YEARS (AUTO ORDER) 11/02/2022 11/02/2017, 11/02/2017 COVID-19 Vaccine (2023-2 5 season) 2024 07/24/2023, 06/16/2022, 12/30/2021, Additional history exists Medicare Advantage ([place]) Preventative Visit/Annual Wellness Visit 09/14/2024 08/17/2024, 02/27/2023, 02/27/2022, Additional history exists COLORECTAL CANCER SCREENING (AUTO ORDER) 11/02/2027 11/02/2017 COLORECTAL SCREENING 11/02/2027 11/02/2017 Colorectal Cancer Screening (AUTO ORDER) 11/02/2027 Colorectal Cancer Screening 11/02/2027 ZOSTER VACCINE Completed 08/26/2018, 05/29/2018 PNEUMOCOCCAL VACCINE 50+ YEARS Completed 0 12/30/2021, 07/25/2019, 06/02/2016, Additional history exists RSV VACCINE (60+ or ) Completed 07/10/2023 INFLUENZA VACCINE Completed 07/01/2024, , 06/16/2022, Additional history exists Medical Devices Implanted Type Area Assembler Ping Pong Table Device Identifier Shelf Expiration Date Model / Serial / Lot Patch Vasc Xenosure Biologic .8x8cm 0.8p8 - [id number] Implanted:Qty : 1 on 12/01/2017 by Andrew Grover MD at [facility] Graft Right: Carotid [employer] 07/11/2023 0.8P8 / / [id number] Description:Right Carotid Ar lori Patch Graft Sealant Floseal 5ml [id number] - [id number] Implanted:Qty : 1 on 12/01/2017 by Andrew Grover MD at [facility] Sealant Right: Carotid [employer] 06/13/2018 [id number] / / [id number] Description:Right Carotid Stent Synergy Xd 2.5x16mm Monorail [id number] - [id number] Implanted:Qty : 1 on 05/31/2021 at [facility] Stent N/A: Coronary [employer] 12/11/2022 [id number] / / [id number] Cardiac Stent Left Hip Implant Screws From Spinal Fusion Procedures Procedure Name Priority Date/Time Associated Diagnosis Comments [facility]ST TEST IN QUESTION (ACTION NEEDED) (NO MY CHART) Routine 11/07/2024 7:50 AM GRADE SETTER VITAMIN B12 LEVEL Routine 11/07/2024 7:5 0 AM GRADE SETTER Vitamin B12 deficiency (non anemic) TSH Routine 11/07/2024 7:50 AM GRADE SETTER Mixed hyperlipidemia LIPID PANEL Routine 11/07/2024 7:50 AM GRADE SETTER Mixed hyperlipidemia HEMOGLOBIN A1C Routine 11/07/2024 7:50 AM GRADE SETTER Abnormal glucose COMPREHENSIVE METABOLIC PANEL Routine 11/07/2024 7:50 AM GRADE SETTER Mixed hyperlipidemia CBC WITH DIFFERENTIAL Routine 11/07/2024 7:50 AM GRADE SETTER Vitamin B12 deficiency (non anemic) ENDOSCOPY, COLON, SCREENING Routine 11/02/2017 from Last 3 Months or Most Recently Relevant to Health Maintenance Results * QUEST TEST IN QUESTION (ACTION NEEDED) (NO MY CHART) (11/07/2024 7:50 AM GRADE SETTER) REPORT/SPECIMEN COMMENT [facility] Comment: Whole blood, unspun or partially spun gel barrier tube was received more than 6 hours since collection. A false elevation of K, Phos and LD as well as a false decrease in glucose may occur due to prolonged contact with red cells. FASTING:YES FASTING: YES Test Performed at: [facility] [address] [place] [address] Colton Ramos MD 11/07/2024 7:50 AM GRADE SETTER 11/07/2024 7:50 AM GRADE SETTER us Jr Morgan MD CHEMISTRY ORDERABLES Final Re sult [facility] [phone] [facility] [address] [place] [address] * CBC WITH DIFFERENTIAL (11/07/2024 7:50 AM GRADE SETTER) WBC 5.7 3.8 - 10.8 Thousand/u L [facility] RBC 4.58 4.20 - 5.80 Million/uL [facility] HEMOGLOBIN 14.5 13.2 - 17.1 g/dL [facility] HEMATOCRIT 44.1 38.5 - 50.0 % [facility] MCV 96.3 80.0 - 100.0 fL [facility] MCH 31.7 27.0 - 33.0 pg [facility] MCHC 32.9 32.0 - 36.0 g/dL [facility] Comment: For adults, a slight decrease in the calculated MCHC value (in the range of 30 to 32 g/dL) is most likely not clinically significant; however, it should be interpreted with caution in correlation with other red cell parameters and the patient's clinical condition. RDW 12.1 11.0 - 15.0 % [facility] PLATELETS 221 140 - 400 Thousand/u L [facility] MPV 10.6 7.5 - 12.5 fL [facility] NEUTROPHIL ABSOLUTE 2,685 1,500 - 7,800 cells/uL [facility] LYMPHOCYTE ABSOLUTE 2,172 850 - 3,900 cells/uL [facility] MONOCYTE ABSOLUTE 633 200 - 950 cells/uL [facility] EOSINOPHIL ABSOLUTE 160 15 - 500 cells/uL [facility] BASOPHILS ABSOLUTE 51 0 - 200 cells/uL [facility] NEUTROPHIL 47.1 % [facility] LYMPHOCYTES 38.1 % [facility] MONOCYTE 11.1 % [facility] EOSINOPHILS 2.8 % [facility] BASOPHILS 0.9 % [facility] Comment: FASTING:YES FASTING: YES Test Performed at: [facility] [address] [place] [address] Colton Ramos MD Blood 11/07/2024 7:50 AM GRADE SETTER 11/07/2024 7:50 AM GRADE SETTER us Jr Morgan MD HEMATOLOGY ORDERABLES Final R esult [facility] [phone] [facility] [place] [address] [place] [address] * TSH (11/07/2024 7:50 AM GRADE SETTER) TSH 3.22 0.40 - 4.50 mIU/L [facility] Comment: Test Performed at: [facility] [address] [address] [address] Colton Ramos MD Blood 11/07/2024 7:50 AM GRADE SETTER 11/07/2024 7:50 AM GRADE SETTER Jr Morgan MD CHEMISTRY ORDERABLES Final Re sult [facility] [phone] [facility] [address] [address] [place] [address] * (ABNORMAL) HEMOGLOBIN A1C (11/07/2024 7:50 AM GRADE SETTER) [facility] HEMOGLOBIN A1C 5.7(H) <5.7 % of total Hgb [facility] Comment: For someone without known diabetes, a hemoglobin A1c value between 5.7% and 6.4% is consistent with prediabetes and should be confirmed with a follow-up test. For someone with known diabetes, a value <7% indicates that their diabetes is well controlled. A1c targets should be individualized based on duration of diabetes, age, comorbid conditions, and other considerations. This assay result is consistent with an increased risk of diabetes. Currently, no consensus exists regarding use of hemoglobin A1c for diagnosis of diabetes for children. ESTIMATED AVERAGE GLUCOSE (MG/DL) 117 mg/dL [facility] ESTIMATED AVERAGE GLUCOSE (MMOL/L) 6.5 mmol/L [facility] Comment: FASTING:YES FASTING: YES Test Performed at: [facility] [address] [place] [address] Colton Ramos Blood 11/07/2024 7:50 AM GRADE SETTER 11/07/2024 7:50 AM GRADE SETTER Jr Morgan MD CHEMISTRY ORDERABLES Final Re sult [facility] [phone] [facility] [address] [address] [place] [address] * VITAMIN B12 LEVEL (11/07/2024 7:50 AM GRADE SETTER) VITAMIN B12 653 200 - 1100 pg/mL [facility] Comment: FASTING:YES FASTING: YES Test Performed at: [facility] [address] [facility] [place] [address] Colton Ramos MD Blood 11/07/2024 7:50 AM GRADE SETTER 11/07/2024 7:50 AM GRADE SETTER us Jr Morgan MD CHEMISTRY ORDERABLES Final Re sult [facility] [phone] [facility] [address] [facility] [place] [address] * (ABNORMAL) LIPID PANEL (11/07/2024 7:50 AM GRADE SETTER) Pathologist [facility] CHOLESTEROL 95 <200 mg/dL [facility] HDL 33(L) > OR = 40 mg/dL [facility] TRIGLYCERIDE 177(H) <150 mg/dL [facility] LDL CALCULATED 37 mg/dL (calc) [facility] Comment: Reference range: <100 Desirable range <100 mg/dL for primary prevention; <70 mg/dL for patients with CHD or diabetic patients with > or = 2 CHD risk factors. LDL-C is now calculated using the Evin-Cary calculation, which is a validated novel method providing better accuracy than the Friedewald equation in the estimation of LDL-C. Evin PATTON et al. ALICE. 2013;310(19): 8931-9993 (http://education.MediaTrust.Inventables/faq/GSX886) CHOL/HDL RATIO 2.9 <5.0 (calc) [facility] NON-HDL CHOLESTEROL 62 <130 mg/dL (calc) [facility] Comment: For patients with diabetes plus 1 major ASCVD risk factor, treating to a non-HDL-C goal of <100 mg/dL (LDL-C of <70 mg/dL) is considered a therapeutic option. Test Performed at: [facility] [address] [facility] [place] [address] Colton Ramos MD Blood 11/07/2024 7:50 AM GRADE SETTER 11/07/2024 7:50 AM GRADE SETTER us Jr Morgan MD CHEMISTRY ORDERABLES Final Re sult [facility] [phone] [facility] [address] [place] [address] * (ABNORMAL) COMPREHENSIVE METABOLIC PANEL (11/07/2024 7:50 AM GRADE SETTER) GLUCOSE 91 65 - 99 mg/dL [facility] Comment: Fasting reference interval BUN 22 7 - 25 mg/dL [facility] CREATININE 1.28 0.70 - 1.28 mg/dL [facility] GFR 58(L) > OR = 60 mL/min/1. 73m2 [facility] BUN/CREAT RATIO SEE NOTE: 6 - 22 (calc) [facility] Comment: Not Reported: BUN and Creatinine are within reference range. SODIUM 147(H) 135 - 146 mmol/L [facility] POTASSIUM 4.8 3.5 - 5.3 mmol/L [facility] CHLORIDE 108 98 - 110 mmol/L [facility] CO2 25 20 - 32 mmol/L [facility] CALCIUM 9.5 8.6 - 10.3 mg/dL [facility] TOTAL PROTEIN 6.9 6.1 - 8.1 g/dL [facility] ALBUMIN 4.6 3.6 - 5.1 g/dL [facility] GLOBULIN 2.3 1.9 - 3.7 g/dL (calc) [facility] ALBUMIN/GLOBULIN RATIO 2.0 1.0 - 2.5 (calc) [facility] BILIRUBIN TOTAL 0.5 0.2 - 1.2 mg/dL [facility] ALKALINE PHOSPHATASE 101 35 - 144 U/L [facility] AST 27 10 - 35 U/L [facility] ALT 27 9 - 46 U/L [facility] Comment: FASTING:YES FASTING: YES Test Performed at: [facility] [address] [place] [address] Colton Ramos MD Blood 11/07/2024 7:50 AM GRADE SETTER 11/07/2024 7:50 AM GRADE SETTER us Jr Morgan MD CHEMISTRY ORDERABLES Final Re sult [facility] [phone] [facility] [address] [facility] [place] [address] * ENDOSCOPY, COLON, SCREENING (11/02/2017) us Abstract Provider GI PROCEDURE ORDERABLES Final Result Performing Organization Address City/[facility]/ZIP Co de Phone Number [facility] INTERNAL MEDICINE [id number] [address] [place] [address] from Last 3 Months or Most Recently Relevant to Health Maintenance Insurance Advance Directives For more information, please contact: [phone] * Full Code (Latest Code Status on File) Date Activated Date Inactivated Comments 05/31/2021 6:35 AM 05/31/2021 7:03 PM * Full Code Date Activated Date Inactivated Comments 12/01/2017 9:59 AM 12/02/2017 2:49 PM Care Teams Software Developer Intern Relationship Specialty Start Date End Date Jr Morgan MD PCP - General Internal Medicine 06/28/18
--- OUTSIDE RECORDS SUMMARY | 2024-12-20 17:17 | XMS_ITS | Encounter Summary ---
Author Organization [facility] Health Address [address] [place] [address] Care Team Providers Care Craft Recruiter Name Role Phone Jr Morgan MD Primary Care Provider [phone] Reason for Visit * Reason Comments Refill Request Encounter Details Date Type Department Care Team (Late st Contact Info) Description 12/17/2024 Refill [facility] - Urology [address] [place] [address] Zainab Becerril, [employer] [address] [facility] [place] [address] Refill Request Social History Tobacco Use Types Packs/Day Years [...] on file documented as of this encounter Visit Diagnoses Diagnosis Benign prostatic hyperplasia without lower urinary tract symptoms documented in this encounter Care Teams Craft Recruiter Relationship Specialty Start Date End Date Jr Morgan MD PCP - General 08/27/18 documented as of this encounter
--- OUTSIDE RECORDS SUMMARY | 2024-12-20 17:17 | XMS_ITS | Encounter Summary ---
Author Organization [facility] Address [address] [place] [address] Care Team Providers Care Meat Packer Name Role Phone Jr Morgan MD Primary Care Provider [phone] Encounter Details Date Type Department Care Team (Late st Contact Info) Description 04/21/2006 Outpatient Historical Division of Neurology [address] [place] [address]., [address] [place] [address] Gianfranco Turner MD [address] [facility] [address] [place] [address] Social History Tobacco Use Types Packs/Day Years Used Date Smoking Tobacco: Never Assessed Sex and Gender Information Value Date Recorded Sex Assigned at Not on file 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 [place] [address] [address] Dutch Cox MD [address] [facility] [address] [place] [address] 02/23/2025 9:00 AM CDT Office Visit [facility] Heart and Vascular At [facility] [address] [facility] [address] [place] [address] Lazaro Jones MD [address] [facility] [address] [place] [address] 03/02/2025 9:40 AM CDT Office Visit [facility] Primary Care [facility] [address] [place] [address] [address] [place] [address] Jr Morgan MD [address] [facility] [address] [place] [address] documented as of this encounter Visit Diagnoses Not on filedocumented in this encounter Additional Health Concerns Infection Onset Date Last Indicated Resolved Time R/O COVID-19 09/18/2021 09/18/2021 09/25/2021 1:16 AM ECONOMIST RESEARCH ASSISTANT documented as of this encounter Care Teams Meat Packer Relationship Specialty Start Date End Date Jr Morgan MD PCP - General Internal Medicine 06/28/18 documented as of this encounter
--- OUTSIDE RECORDS SUMMARY | 2024-12-20 17:17 | XMS_ITS | Encounter Summary ---
Author Organization [facility] Address [address] [place] [address] Care Team Providers Care Fruit Press Operator Name Role Phone Jr Morgan MD Primary Care Provider [phone] Encounter Details Date Type Department Care Team (Latest Contact Info) Description 11/23/2017 Research Encounter [address] [address] Minerva Pisano RN Stenosis of carotid artery, unspecified laterality (Primary Dx) Social History Tobacco Use Types Packs/Day Years Used Date Smoking Tobacco: Never Alcohol Use Standard Drinks/Week Comments Yes 5 (1 standard drink = 0.6 oz pur e alcohol) Sex and Gender Information Value Date Recorded Sex Assigned at Not on file 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 Gender Identity Not on file Sexual Orientation Not on file documented as of this encounter Plan of Treatment Upcoming Encounters Date Type Department Care Team (Late st Contact Info) Description 01/09/2025 1:00 PM CDT Appointment [facility] Supp Svcs Blood Flow [address] [place] [phone] Dutch Cox MD [facility] [address] [address] 01/09/2025 1:45 PM CDT Office Visit [facility] Rate [address] [address] Dutch Cox MD [address] [place] [address] [place] [address] 02/23/2025 9:00 AM CDT Office Visit [facility] [address] [place] [address] Lazaro Jones MD [address] [facility] [address] [place] [address] 03/02/2025 9:40 AM CDT Office Visit [facility] Primary Care [facility] [address] [facility] [address] [place] [address] Jr Morgan MD [address] [facility] [address] [place] [address] documented as of this encounter Results * (ABNORMAL) LIPID PANEL (11/24/2017 10:18 AM CDT) [facility] CHOLESTEROL 133 <200 mg/dL 11/24/2017 11:39 AM T [facility] LABORATORY [facility] TRIGLYCERIDE 216(H) <150 mg/dL 11/24/2017 11:39 AM T [facility] HDL 45 40 - 59 mg/dL 11/24/2017 11:39 AM [facility] LDL CALCULATED 45 <100 mg/dL 11/24/2017 11:39 AM [facility] NON-HDL CHOLESTEROL 88 <130 mg/dL 11/24/2017 11:39 AM [facility] Blood Venipuncture / Unknown 11/24/2017 10:18 AM CDT 11/24/2017 10:25 AM T [facility] LABORATORY SERVICES [facility] - 11/24/2017 11:39 AM CDT TOTAL CHOLESTEROL mg/dL Desirable <200 Borderline high 200-239 High >=240 TRIGLYCERIDES mg/dL Normal <150 Borderline high 150-199 High 200-499 Very high >=500 HDL CHOLESTEROL mg/dL Low <40 Normal 40-59 Desirable >=60 NON HDL CHOLESTEROL mg/dL Optimal <130 Near Optimal 130-159 Borderline High 160-189 Very High >=190 Calculated LDL mg/dL Optimal <100 Near Optimal 100-129 Borderline High 130-159 High 160-189 Very High >=190 ATPIII Guidelines Reference Ranges for Lipid Panels (NCEP/AMA) Andrew Grover MD CHEMISTRY ORDERABLES Final Result [facility] LABORATORY SERVICES [facility]# [id number] [address] [facility] [place] [id number] * (ABNORMAL) BASIC METABOLIC PANEL (11/24/2017 10:18 AM CDT) SODIUM 137 136 - 145 mmol/L 11/24/2017 12:18 PM CDT [facility]AT[facility] SERVICES - . [facility] POTASSIUM 4.4 3.5 - 5.0 mmol/L 11/24/2017 12:18 PM CDT [facility] - . [facility] CHLORIDE 98 98 - 107 mmol/L 11/24/2017 12:18 PM CDT [facility] - . [facility] CO2 26 22 - 29 mmol/L 11/24/2017 12:18 PM CDT [facility] - . [facility] CALCIUM 9.5 8.6 - 10.2 mg/dL 11/24/2017 12:18 PM CDT [facility] - . [facility] BUN 19 8 - 23 mg/dL 11/24/2017 12:18 PM T [facility] SERVICES - . [facility] CREATININE 1.57(H) 0.67 - 1.17 mg/dL 11/24/2017 12:18 PM CDT [facility] - [facility] GLUCOSE 44(LL) 74 - 99 mg/dL 11/24/2017 12:18 PM CDT [facility]ORY [facility] - . [facility] GFR 44(L) >=60 mL/min/1.7 3 sq meter 11/24/2017 12:18 PM CDT [facility] SERVICES - . [facility] Comment: eGFR has not been validated for use in the elderly (> 70 years of age), women, patients with serious co-morbid conditions, or persons with extremes of body size or muscle mass and should also be interpreted with caution in patients with acute kidney failure, dialysis dependent patients, patients reporting exceptional dietary intake (e.g. vegetarian diet, high protein diets, creatine supplementation), and patients with severe liver disease. Based on National Kidney Disease Education Program If patient is , please refer to the GFR result. GFR, 54(L) >=60 mL/min/1.7 3 sq meter 11/24/2017 12:18 PM CDT [facility] LABORATORY [facility] ANION GAP 13 8 - 16 mmol/L 11/24/2017 12:18 PM CDT [facility] LABORATORY [facility] Blood Venipuncture / Unknown 11/24/2017 10:18 AM CDT 11/24/2017 10:25 AM CDT Andrew Grover MD CHEMISTRY ORDERABLES Final Result Performing Organization Address [facility]/ZIP Co de Phone Number [facility]# [id number] [address] [place] [address] * HEMOGLOBIN A1C (11/24/2017 10:18 AM CDT) HEMOGLOBIN A1C 5.0 4.0 - 6.0 % 11/24/2017 11:26 AM T [facility] EST. AVG GLUCOSE, A1C 97 mg/dL 11/24/2017 11:26 AM T [facility] Blood Venipuncture / Unknown 11/24/2017 10:18 AM CDT 11/24/2017 10:25 AM CDT Andrew Grover MD CHEMISTRY ORDERABLES Final Result Performing Organization Address [facility]/ZIP Co de Phone Number [facility]# [id number] [address] [place] [address] * CK (11/24/2017 10:18 AM CDT) CK 115 20 - 200 U/L 11/24/2017 11:39 AM CDT [facility] Blood Venipuncture / Unknown 11/24/2017 10:18 AM CDT 11/24/2017 10:25 AM CDT us Andrew Grover MD CHEMISTRY ORDERABLES Final Result [facility] LABORATORY SERVICES [facility] CLIA# [id number] [address] [place] [address] documented in this encounter Visit Diagnoses Diagnosis Stenosis of carotid artery, unspecified laterality- Primary documented in this encounter Additional Health Concerns Infection Onset Date Last Indicated Resolved Time R/O COVID-19 09/18/2021 09/18/2021 09/25/2021 1:16 AM SURGERY CONSULTANT documented as of this encounter Care Teams Fruit Press Operator Relationship Specialty Start Date End Date Jr Morgan MD PCP - General Internal Medicine 06/28/18 documented as of this encounter
--- OUTSIDE RECORDS SUMMARY | 2024-12-20 17:17 | XMS_ITS | Continuity of Care Document ---
Author Organization [facility] Address [address] [place] [address] [address] [place] [address] Phone Care Team Providers Care Rn Sane Name Role Phone Radha Damon PT Unavailable Unavailable Procedures Procedure Date Therapeutic Activities Therapeutic Exercise Manual Therapy Hot or Cold Pack Therapeutic Activities Therapeutic Exercise Manual Therapy Hot or Cold Pack Therapeutic Activities Therapeutic Exercise Manual Therapy Progress Note Therapeutic Activities Therapeutic Exercise Manual Therapy Therapeutic Activities Therapeutic Exercise Manual Therapy Therapeutic Activities Neuromuscular Re-Ed Therapeutic Exercise Manual Therapy Hot or Cold Pack Therapeutic Activities Neuromuscular Re-Ed Therapeutic Exercise Therapeutic Activities Neuromuscular Re-Ed Therapeutic Exercise Therapeutic Activities Neuromuscular Re-Ed Therapeutic Exercise Therapeutic Activities Neuromuscular Re-Ed Therapeutic Exercise Manual Therapy Therapeutic Activities Neuromuscular Re-Ed Therapeutic Exercise Manual Therapy Doc neg elder mal no plan PT Evaluation Moderate Complexity Therapeutic Activities Neuromuscular Re-Ed Therapeutic Exercise Neuromuscular Re-Ed Therapeutic Exercise Therapeutic Activities Manual Therapy Therapeutic Activities Neuromuscular Re-Ed Therapeutic Exercise Manual Therapy Neuromuscular Re-Ed Therapeutic Activities Therapeutic Exercise Manual Therapy Neuromuscular Re-Ed Therapeutic Activities Therapeutic Exercise Manual Therapy Therapeutic Exercise Therapeutic Activities Manual Therapy Neuromuscular Re-Ed Neuromuscular Re-Ed Manual Therapy Therapeutic Exercise Therapeutic Activities Therapeutic Exercise Manual Therapy Therapeutic Activities Neuromuscular Re-Ed Therapeutic Activities Neuromuscular Re-Ed Therapeutic Exercise Therapeutic Exercise Therapeutic Activities Neuromuscular Re-Ed Manual Therapy PT Evaluation Low Complexity Manual Therapy Therapeutic Exercise Progress Note Therapeutic Exercise Therapeutic Activities Neuromuscular Re-Ed Manual Therapy Hot or Cold Pack Therapeutic Exercise Therapeutic Activities Neuromuscular Re-Ed Manual Therapy Hot or Cold Pack Therapeutic Exercise Therapeutic Activities Neuromuscular Re-Ed Manual Therapy Hot or Cold Pack Therapeutic Exercise Therapeutic Activities Neuromuscular Re-Ed Manual Therapy Hot or Cold Pack Therapeutic Exercise Therapeutic Activities Neuromuscular Re-Ed Manual Therapy Hot or Cold Pack Therapeutic Exercise Therapeutic Activities Neuromuscular Re-Ed Manual Therapy Hot or Cold Pack Therapeutic Exercise Therapeutic Activities Manual Therapy Hot or Cold Pack Therapeutic Exercise Therapeutic Activities Neuromuscular Re-Ed Manual Therapy Hot or Cold Pack Therapeutic Exercise Therapeutic Activities Neuromuscular Re-Ed Manual Therapy Hot or Cold Pack Therapeutic Exercise Therapeutic Activities Manual Therapy Hot or Cold Pack Therapeutic Exercise Neuromuscular Re-Ed Manual Therapy Hot or Cold Pack Therapeutic Exercise Therapeutic Activities Manual Therapy Hot or Cold Pack Therapeutic Exercise Neuromuscular Re-Ed Manual Therapy Hot or Cold Pack Therapeutic Exercise Therapeutic Activities Neuromuscular Re-Ed Manual Therapy Hot or Cold Pack Therapeutic Exercise Therapeutic Activities Neuromuscular Re-Ed Manual Therapy Hot or Cold Pack Therapeutic Exercise Therapeutic Activities Neuromuscular Re-Ed Manual Therapy Hot or Cold Pack Therapeutic Exercise Therapeutic Activities Neuromuscular Re-Ed Manual Therapy Hot or Cold Pack Therapeutic Exercise Therapeutic Activities Neuromuscular Re-Ed Manual Therapy Hot or Cold Pack Therapeutic Exercise Therapeutic Activities Neuromuscular Re-Ed Manual Therapy Hot or Cold Pack Therapeutic Exercise Therapeutic Activities Neuromuscular Re-Ed Manual Therapy Hot or Cold Pack Therapeutic Exercise Neuromuscular Re-Ed Manual Therapy Hot or Cold Pack Therapeutic Exercise Neuromuscular Re-Ed Manual Therapy Hot or Cold Pack Therapeutic Exercise Therapeutic Activities Neuromuscular Re-Ed Manual Therapy Hot or Cold Pack Therapeutic Exercise Neuromuscular Re-Ed Manual Therapy Hot or Cold Pack Therapeutic Exercise Therapeutic Activities Neuromuscular Re-Ed Manual Therapy Hot or Cold Pack Therapeutic Exercise Therapeutic Activities Neuromuscular Re-Ed Manual Therapy Hot or Cold Pack Therapeutic Exercise Neuromuscular Re-Ed Manual Therapy Hot or Cold Pack Therapeutic Exercise Neuromuscular Re-Ed Manual Therapy Hot or Cold Pack Therapeutic Exercise Neuromuscular Re-Ed Manual Therapy Hot or Cold Pack Therapeutic Exercise Neuromuscular Re-Ed Manual Therapy Hot or Cold Pack Therapeutic Exercise Neuromuscular Re-Ed Manual Therapy Hot or Cold Pack Therapeutic Exercise Neuromuscular Re-Ed Manual Therapy Hot or Cold Pack Therapeutic Exercise Neuromuscular Re-Ed Manual Therapy Hot or Cold Pack Therapeutic Exercise Manual Therapy Hot or Cold Pack Therapeutic Exercise Manual Therapy Hot or Cold Pack PT Evaluation Moderate Complexity Therapeutic Exercise Manual Therapy Advance Directives Directive Yes / No Effective Date File Name No Information Encounters Encounter Description Practice Location Reason(s) For Visit Diagnoses Date Provider Providers Copied on Encounter [address], [id number], tel:[phone] Mehran No Information 3 Garrels Radha. . Referring Provider: Bridgett Banda1 S [facility] Suite [facility], [place], [address]. tel:[phone], [place], [id number], tel:[phone] [place] No Information 3 Garrels Radha. . Referring Provider: Charles Banda S [facility] [address], [place], [address]. tel:[phone] [address], [place], [address], tel:[phone] Mehran No Information 3 Ana Enriquez. [address] [place] [address], [address], [place], [address], . tel: [phone] Referring Provider: Bridgett Banda1 S [facility] [address], [place], [address]. tel:[phone], [place], [place], [address], tel:[phone] [place] No Information 3 Hisky Manohar. . Referring Provider: Alfonso Vicente Charles S [facility] Suite [facility], [place], [address]. tel:[phone] [facility] [address] [place], [place] [address], [place], [place], [address], tel:[phone] [place] No Information 0 3 Garrels Radha. . Referring Provider: Alfonso Vicente [address] [place] [address] Suite [facility], [place], [address]. tel:[phone] [facility] [address] [place], [place] [address], [place], [place], [address], tel:[phone] [place] No Information 0 3 Garrels Radha. . Referring Provider: Charles Banda [facility] Suite [facility], [place], [address]. tel:[phone] [facility] [address] [place], [place] [address], [place], [place], [address], [place] tel:[phone] [place] No Information 3 Ana Enriquez. [address] [place] [address], [address], [place], [facility], . tel:[phone] Referring Provider: Alfonso Vicente BridgettAnthony S [facility] Suite [facility], [place], [address]. tel:[phone] [address], [place], [place], [address], [place] tel:[phone] Mehran No Information - 3 Ana Enriquez. [address] [place] [address], [address], [place], [facility], . tel:[phone] Referring Provider: Alfonso Vicente BridgettAnthony S [facility] Suite [facility], [place], [address]. tel:[phone] [facility] [address] [facility], [place], [place], [address], tel:[phone] [place] No Information 3 [place] Chapis. . Referring Provider: Charles Banda S [facility] [address], [place], [address]. tel:[phone] [facility] [address] [facility], [place], [place], [address], tel:[phone] Mehran No Information 3 Ana Enriquez. [address] [facility], [address], [place], [address], [place]. tel:[phone] Referring Provider: Charles Banda S [facility] [address], [place], [address]. tel:[phone] [facility] [address] [facility] [address], [place], [place], [address], tel:[phone] [place] No Information 3 Ana Enriquez. [address] [facility], [address], [place], [address], [place]. tel:[phone] Referring Provider: Charles Banda S [facility] [address], [place], [address]. tel:[phone] [facility] [address] [facility] [address], [place], [place], [address], [place] tel:[phone] Mehran No Information 3 [place]. . Referring Provider: Charles Banda S [facility] [address], [place], [address]. tel:[phone] [facility], [place], [place], [address], [place] tel:[phone] Mehran No Information 1 Corrales Teodoro. . Referring Provider: Oniel Cervantes, [address] [facility] [address], [place], [address]. tel:[phone] [facility], [address], [place], [place], [address], [place] tel:[phone] Mehran No Information 1 Corrales Teodoro. . Referring Provider: Oniel Cervantes, [address] [facility] [address], [place], [address]. tel:[phone] [facility], [address], [place], [place], [address], [place] tel:[phone] Mehran No Information 0 1 Corrales Teodoro. . Referring Provider: Oniel Cervantes, [address] [facility] [address], [place], [address]. tel:[phone] [facility], [address], [place], [place], [address], [place] tel:[phone] [place] No Information 0 1 Corrales Teodoro. . Referring Provider: Oniel Cervantes, [address] [facility] [address], [place], [address]. tel:[phone] [facility], [address], [place], [place], [address], [place] tel:[phone] Mehran No Information 0 1 Ana Enriquez. [address] [facility], [address], [place], [place], [facility], [place]. tel: [phone] Referring Provider: Oniel Cervantes, [address] [facility] [address], [place], [address]. tel:[phone] [facility] [address], [place], [place], [address], [place] tel:[phone] [place] No Information 1 Ana Enriquez. [address] [facility], [address], [place], [address], [place]. tel: [phone] Referring Provider: Oniel Cervantes, [address] [facility] [address], [place], [address]. tel:[phone] [facility] [address] [facility] [address], [place], [place], [address], [place] tel:[phone] Mehran No Information 1 Ana Enriquez. [address] [facility], [address], [place], [address], [place]. tel: [phone] Referring Provider: Oniel Cervantes, [address] [facility] [address], [place], [address]. tel:[phone] [facility] [address] [facility], [place], [place], [address], [place] tel:[phone] Mehran No Information 1 Sameer Suarez. . Referring Provider: Oniel Cervantes, [address] [facility] [address], [place], [address]. tel:[phone] [facility], [address], [place], [place], [address], [place] tel:[phone] Mehran No Information 1 Corrales Teodoro. . Referring Provider: Oniel Cervantes, [address] [facility] [address], [place], [address]. tel:[phone] [facility] [address] [facility] [address], [place], [place], [address], [place] tel:[phone] Mehran No Information 1 Corrales Teodoro. . Referring Provider: Oniel Cervantes, [address] [facility] [address], [place], [address]. tel:[phone] [facility], [place], [place], [address], [place] tel:[phone] Mehran Low back painStiffness of unspecified joint, not elsewhere classifiedOth symptoms and signs involving the musculoskeletal system 8 Corrales Teodoro. . [facility], [place], [place], [address], [place] tel:[phone] [place] Low back painStiffness of unspecified joint, not elsewhere classifiedOth symptoms and signs involving the musculoskeletal system 8 Ana Enriquez. [address] [facility], [address], [place], [address], [place]. tel: [phone] [facility], [place], [place], [address], [place] tel:[phone] [place] Low back painStiffness of unspecified joint, not elsewhere classifiedOth symptoms and signs involving the musculoskeletal system 8 Scheldt Stefania. . [facility], [place], [place], [address], [place] tel:[phone] [place] Low back painStiffness of unspecified joint, not elsewhere classifiedOth symptoms and signs involving the musculoskeletal system 8 Ana Enriquez. [address] [facility], [address], [place], [address], [place]. tel: [phone] [facility], [place], [place], [address], [place] tel:[phone] [place] Low back painStiffness of unspecified joint, not elsewhere classifiedOth symptoms and signs involving the musculoskeletal system 8 Scheldt Stefania. . [facility], [place], [place], [address], [place] tel:[phone] Mehran Low back painStiffness of unspecified joint, not elsewhere classifiedOth symptoms and signs involving the musculoskeletal system 8 Scheldt Stefania. . [facility], [place], [place], [address], [place] tel:[phone] [place] Low back painStiffness of unspecified joint, not elsewhere classifiedOth symptoms and signs involving the musculoskeletal system 8 Ana Enriquez. [address] [facility], [address], [place], [address], [place]. tel: [phone] [facility] [address], [place], [place], [address], [place] tel:[phone] [place] Low back painStiffness of unspecified joint, not elsewhere classifiedOth symptoms and signs involving the musculoskeletal system Nov-0 1- 8 Scheldt Stefania. . [facility], [place], [place], [address], [place] tel:[phone] Mehran Low back painStiffness of unspecified joint, not elsewhere classifiedOth symptoms and signs involving the musculoskeletal system Jun-3 0- 8 Scheldt Stefania. . [facility], [place], [place], [address], [place] tel:[phone] [place] Low back painStiffness of unspecified joint, not elsewhere classifiedOth symptoms and signs involving the musculoskeletal system Oct-2 9- 8 Ana Enriquez. [address] [facility], [address], [place], [address], [place]. tel: [phone] [facility], [place], [place], [address], [place] tel:[phone] Mehran Low back painStiffness of unspecified joint, not elsewhere classifiedOth symptoms and signs involving the musculoskeletal system Oct-2 3- 8 Ana Enriquez. [address] [facility], [address], [place], [address], [place]. tel: [phone] [facility], [place], [place], [address], [place] tel:[phone] Mehran Low back painStiffness of unspecified joint, not elsewhere classifiedOth symptoms and signs involving the musculoskeletal system Oct-2 2-201 8 Ana Enriquez. [address] [facility], [address], [place], [address], [place]. tel: [phone] [facility], [place], [place], [address], [place] tel:[phone] [place] Low back painStiffness of unspecified joint, not elsewhere classifiedOth symptoms and signs involving the musculoskeletal system Jun- 8 8 Ana Enriquez. [address] [facility], [address], [place], [address], [place]. tel: [phone] [facility], [place], [place], [address], [place] tel:[phone] [place] Low back painStiffness of unspecified joint, not elsewhere classifiedOth symptoms and signs involving the musculoskeletal system Jun- 8 Ana Enriquez. [address] [place] [address], [address], [place], [address], [place]. tel: [phone] [facility], [place], [place], [address], [place] tel:[phone] [place] Low back painStiffness of unspecified joint, not elsewhere classifiedOth symptoms and signs involving the musculoskeletal system 8 Ana Enriquez. [address] [facility], [address], [place], [address], [place]. tel: [phone] [facility], [place], [place], [address], [place] tel:[phone] [place] Low back painStiffness of unspecified joint, not elsewhere classifiedOth symptoms and signs involving the musculoskeletal system 8 Ana Enriquez. [address] [facility], [address], [place], [address], [place]. tel: [phone] [facility], [place], [place], [address], [place] tel:[phone] Mehran Low back painStiffness of unspecified joint, not elsewhere classifiedOth symptoms and signs involving the musculoskeletal system Jun-0 8 Demi Aguiar. . [facility], [place], [place], [address], [place] tel:[phone] [place] Low back painStiffness of unspecified joint, not elsewhere classifiedOth symptoms and signs involving the musculoskeletal system Oct-0 8-201 8 Ana Enriquez. [address] [place] [address], [address], [place], [address], [place]. tel: [phone] [facility], [place], [place], [address], [place] tel:[phone] Mehran Low back painStiffness of unspecified joint, not elsewhere classifiedOth symptoms and signs involving the musculoskeletal system Oct-0 4-201 8 Corrales Teodoro. . [facility], [place], [place], [address], [place] tel:[phone] [place] Low back painStiffness of unspecified joint, not elsewhere classifiedOth symptoms and signs involving the musculoskeletal system Oct-0 2-201 8 Scheldt Stefania. . [facility], [place], [place], [address], [place] tel:[phone] Mehran Low back painStiffness of unspecified joint, not elsewhere classifiedOth symptoms and signs involving the musculoskeletal system Oct-0 1-201 8 Ana Enriquez. [address] [place] [address], [address], [place], [address], [place]. tel: [phone] [facility], [place], [place], [address], [place] tel:[phone] [place] Low back painStiffness of unspecified joint, not elsewhere classifiedOth symptoms and signs involving the musculoskeletal systemMyalgia Sep-2 - 8 Ana Enriquez. [address] [place] [address], [address], [place], [address], [place]. tel: [phone] [facility], [place], [place], [address], [place] tel:[phone] [place] Low back painStiffness of unspecified joint, not elsewhere classifiedOth symptoms and signs involving the musculoskeletal systemMyalgia Sep-2 5- 8 Scheldt Stefania. . [facility], [place], [place], [address], [place] tel:[phone] Mehran Low back painStiffness of unspecified joint, not elsewhere classifiedOth symptoms and signs involving the musculoskeletal systemMyalgia Sep-2 4- 8 Ana Enriquez. [address] [place] [address], [address], [place], [place], [facility], [place]. tel: [phone] [facility], [address], [place], [place], [address], [place] tel:[phone] Mehran Low back painStiffness of unspecified joint, not elsewhere classifiedOth symptoms and signs involving the musculoskeletal systemMyalgia Sep-2 0-201 8 Scheldt Stefania. . [facility], [place], [place], [address], [place] tel:[phone] Mehran Low back painStiffness of unspecified joint, not elsewhere classifiedOth symptoms and signs involving the musculoskeletal systemMyalgia Sep-1 8- 8 Scheldt Stefania. . [facility], [place], [place], [address], [place] tel:[phone] [place] Low back painStiffness of unspecified joint, not elsewhere classifiedOth symptoms and signs involving the musculoskeletal systemMyalgia Sep-1 7 8 Ana Enriquez. [address] [place] [address], [address], [place], [address], [place]. tel: [phone] [facility], [place], [place], [address], [place] tel:[phone] Mehran Low back painStiffness of unspecified joint, not elsewhere classifiedOth symptoms and signs involving the musculoskeletal systemMyalgia Sep-1 4- 8 Ana Enriquez. [address] [place] [address], [address], [place], [address], [place]. tel: [phone] [facility], [place], [place], [address], [place] tel: [phone] [place] Low back painStiffness of unspecified joint, not elsewhere classifiedOth symptoms and signs involving the musculoskeletal systemMyalgia Sep-1 1-201 8 Иванldt Tsefania. . [facility], [place], [place], [address], [place] tel:[phone] Mehran Low back painStiffness of unspecified joint, not elsewhere classifiedOth symptoms and signs involving the musculoskeletal systemMyalgia Sep-1 0-201 8 Ana Enriquez. [address] [place] [address], [address], [place], [place], [facility], [place]. tel: [phone] [facility], [place], [place], [address], [place] tel:[phone] [place] Low back painStiffness of unspecified joint, not elsewhere classifiedOth symptoms and signs involving the musculoskeletal systemMyalgia Sep-0 7-201 8 Corrales Teodoro. . [facility], [place], [place], [address], [place] tel:[phone] [place] Low back painStiffness of unspecified joint, not elsewhere classifiedOth symptoms and signs involving the musculoskeletal systemMyalgia Sep-0 6-201 8 Ana Enriquez. [address] [facility], [address], [place], [place], [facility], [place]. tel: [phone] [facility], [place], [place], [address], [place] tel:[phone] [place] Low back painStiffness of unspecified joint, not elsewhere classifiedOth symptoms and signs involving the musculoskeletal systemMyalgia Sep-0 4-201 8 Ana Enriquez. [address] [facility], [address], [place], [address], [place]. tel: [phone] [facility], [place], [place], [address], tel:[phone] [place] Low back painStiffness of unspecified joint, not elsewhere classifiedOth symptoms and signs involving the musculoskeletal systemMyalgia 8 Ana Enriquez. [address] [facility], [address], [place], [address], [place]. tel: [phone] [facility], [place], [place], [address], tel:[phone] Mehran Low back painStiffness of unspecified joint, not elsewhere classifiedOth symptoms and signs involving the musculoskeletal systemMyalgia 8 Corrales Teodoro. . [facility] [facility] [address], [place], [place], [address], tel:[phone] [place] Low back painStiffness of unspecified joint, not elsewhere classifiedOth symptoms and signs involving the musculoskeletal systemMyalgia 8 Corrales Teodoro. . Family History Family Member Type Diagnosis Age At Onset No Information Payers Payer name Insurance type Covered libertarian ID Edison shaw(s) A[employer] Medicare Replacement CI [id number] Social History Type Description Quantity Date Captured Comments Sex Male Smoking Status No Information Chief Complaint And Reason For Visit No Information Reason For Referral Reason For Referral No Information History Of Present Illness Encounter Date Complaint History Of Prese nt Illness No Information Functional Status Date Functional Assessmen t No Information Instructions Date Instruction Additional Infor js Giving encouragement to exercise Related to Overweight Giving encouragement to exercise Related to Overweight Giving encouragement to exercise Related to Overweight Giving encouragement to exercise Related to Overweight Giving encouragement to exercise Related to Overweight Giving encouragement to exercise Related to Overweight Giving encouragement to exercise Related to Overweight Giving encouragement to exercise Related to Overweight Assessments Type Assessment Date No Information Patient Care Teams Name Effective Dates (start - stop) Status Members No Information
--- OUTSIDE RECORDS SUMMARY | 2024-12-20 17:17 | XMS_ITS | Data Portability ---
Author Organization [facility]UT[facility] Address [address] [facility] [place] [address] Assessment No assessment recorded. Plan of Treatment Reminders Order Date Submit Date Provider Last Modified By Organization Details Last Modified Time Details Appointments None record ed. Lab None record ed. Referral None record ed. Procedures None record ed. Surgeries None record ed. Imaging None record ed. Medication Orders None record ed. Patient TargetsNo targets recorded. Patient InstructionsNo instructions recorded. Reason for Referral None Reported. Medical Equipment None Reported. Vitals None Recorded Social History None recorded. Functional Status None recorded. Mental Status None recorded. Family History Nothing Reported. Medical History No medical history recorded. Immunizations Vaccine Type Date Status Note Provider Nam e and Address Organization Details Recorded Time COVID-19, mRNA, LNP-S, PF, 100 mcg/0.5mL dose or 50 mcg/0.25mL dose 11/01/2020 completed FRAN[place], [place] [facility] 11/01/2020 13:35:24 COVID-19, mRNA, LNP-S, PF, 100 mcg/0.5mL dose or 50 mcg/0.25mL dose 11/30/2020 completed FRANNY Ragsdale, [facility] 11/30/2020 13:27:52 Past Encounters Encounter ID Performer Location Encounter Start Date Encounter Closed Date Diagnosis/Indication Diagnosis SNOMED-CT Code Diagnosis ICD10 Code Diagnosis Note [id number] SIERRA Fuller [address] [place] [address] [place] [id number] 11/01/2020 11:39:51 11/02/2020 08:07:11 Administration of SARS-CoV-2 antigen vaccine [id number] Z23 [id number] SIERRA Fuller 14 IM 4 [facility] [place] [address] 11/29/2020 11:25:23 12/01/2020 10:00:49 Administration of SARS-CoV-2 antigen vaccine [id number] Z23 Health Concerns Section Related Observation LastModified by Organization Detai ls LastModified Time None Recorded Concern Status LastModified by Organization Details LastModified Time None Recorded Advance Directives Directive None Recorded Payers Encounter Date Sequence Insurance Name Policy Number Policy Allen Covered Member ID Allen Member ID Guarantor Name 11/01/2020 1 [place] Frankie Richardson [id number] Frankie Richardson 11/01/2020 2 [facility] (MEDICARE REPLACEMENT/A DVANTAGE - PPO) [id number] Frankie Richardson [id number] Frankie Richardson 11/29/2020 1 [place] Frankie Richardson [id number] Frankie Richardson 11/29/2020 2 [facility] (MEDICARE REPLACEMENT/A DVANTAGE - PPO) [id number] Frankie Richardson [id number] Frankie Richardson
--- OUTSIDE RECORDS SUMMARY | 2024-12-20 17:17 | XMS_ITS | Encounter Summary ---
Author Organization [facility] Address [address] [place] [address] Care Team Providers Care General Agent Name Role Phone Jr Morgan MD Primary Care Provider [phone] Encounter Details Date Type Department Care Team (Latest Contact Info) Description 11/25/2017 Research Encounter [address] [address] Minerva Pisano RN Stenosis of carotid artery, unspecified laterality (Primary Dx) Social History Tobacco Use Types Packs/Day Years Used Date Smoking Tobacco: Never Smokeless Tobacco: Never Alcohol Use Standard Drinks/Week Comments Yes 5 (1 standard drink = 0.6 oz pur e alcohol) rare Sex and Gender Information Value Date Recorded Sex Assigned at Not on file Legal Sex Male 2:57 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 Gender Identity Not on file Sexual Orientation Not on file documented as of this encounter Plan of Treatment Upcoming Encounters Date Type Department Care Team (Late st Contact Info) Description 01/09/2025 1:00 PM CDT Appointment [facility] Supp Svcs Blood Flow [address] [place] [address] Dutch Cox MD [address] [place] [address] 01/09/2025 1:45 PM CDT Office Visit [address] [address] Dutch Cox MD [address] [place], [place] [address] [place] [address] 02/23/2025 9:00 AM CDT Office Visit [facility] [address] [place] [address] Lazaro Jones MD [address] [facility] [address] [place] [address] 03/02/2025 9:40 AM CDT Office Visit [facility] Primary Care [facility] [address] [place] [address] [address] [place] [address] Jr Morgan MD [address] [facility] [address] [place] [address] documented as of this encounter Results * BASIC METABOLIC PANEL PLUS (ADD ON CMP TO BMP) (11/24/2017 10:18 AM CDT) Pathologist [facility] TOTAL PROTEIN 6.7 6.7 - 8.6 g/dL 11/25/2017 2:30 PM T [facility] ALBUMIN 4.3 3.5 - 5.2 g/dL 11/25/2017 2:30 PM T [facility] BILIRUBIN TOTAL 0.4 0.2 - 1.1 mg/dL 11/25/2017 2:30 PM T [facility] ALKALINE PHOSPHATASE 50 40 - 129 U/L 11/25/2017 2:30 PM T [facility] AST 25 <41 U/L 11/25/2017 2:30 PM [facility] ALT 13 <42 U/L 11/25/2017 2:30 PM [facility] Blood Collection / Unknown 11/24/2017 10:18 AM CDT 11/25/2017 1:[address] [facility] LABORATORY SERVICES [facility] - 11/25/2017 2:30 PM CDT Samples containing indocyanine green cause interferences on Total and/or Direct Bilirubin and must not be measured. us Andrew Grover MD CHEMISTRY ORDERABLES Final Result [facility]# [id number] [address] [place] [place] [id number] documented in this encounter Visit Diagnoses Diagnosis Stenosis of carotid artery, unspecified laterality- Primary documented in this encounter Additional Health Concerns Infection Onset Date Last Indicated Resolved Time R/O COVID-19 09/18/2021 09/18/2021 09/25/2021 1:16 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 documented as of this encounter Care Teams General Agent Relationship Specialty Start Date End Date Jr Morgan MD PCP - General Internal Medicine 06/28/18 documented as of this encounter
--- OUTSIDE RECORDS SUMMARY | 2024-12-20 17:17 | XMS_ITS | Encounter Summary ---
Author Organization [facility] Address [address] [place] [address] Care Team Providers Care Can Reforming Machine Operator Name Role Phone Jr Morgan MD Primary Care Provider [phone] Encounter Details Date Type Department Care Team (Late st Contact Info) Description 07/15/2005 Outpatient [facility] 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 CLERK Gender Identity Not on file Sexual Orientation Not on file documented as of this encounter Plan of Treatment Upcoming Encounters Date Type Department Care Team (Late st Contact Info) Description 01/09/2025 1:00 PM CDT Appointment [facility] Supp Svcs Blood Flow [facility] [place] [address] Dutch Cox MD [facility] [address] [address] 01/09/2025 1:45 PM CDT Office Visit [facility] Percussion Tuner [place] [address] [address] Dutch Cox MD [facility] [address] [address] 02/23/2025 9:00 AM CDT Office Visit [facility] At [facility] [address] [facility] [address] [facility] [address] [address] [place] [address] Lazaro Jones MD [address] [facility] [place] [address] 03/02/2025 9:40 AM CDT Office Visit [facility] Primary Care [facility] [address] [facility] [address] [place] [address] Jr Morgan MD [address] [facility] [address] [place] [address] documented as of this encounter Visit Diagnoses Not on filedocumented in this encounter Additional Health Concerns Infection Onset Date Last Indicated Resolved Time R/O COVID-19 09/18/2021 09/18/2021 09/25/2021 1:16 AM INTERLINE CLERK documented as of this encounter Care Teams Can Reforming Machine Operator Relationship Specialty Start Date End Date Jr Morgan MD PCP - General Internal Medicine 06/28/18 documented as of this encounter
[2024-12-20 17:19] VITALS: BP 141/79; PULSE 54; RESP 16; TEMP 36.8; O2SAT 98
--- NOTE | 2024-12-20 17:22 | ED_ITS ---
HPI - URI/Sore Throat General Chief Complaint: Upper Respiratory Infection Stated Complaint: Headache/Eye Problem/Sore Throat Time Seen by Provider: 12/20/24 17:36 Source: patient and RN notes reviewed Mode of arrival: ambulatory Limitations: no limitations History of Present Illness HPI Narrative: 74-year-old male presents with concern for 10 day history of sinus congestion, drainage, pressor, cough. Reports over the last couple days he has began having bilateral eye irritation, drainage, itchiness. He has been taking Flonase and Mucinex without relief. MD elicited complaint: cough and nasal congestion Related Data Home Medications ?Medication ?Instructions ?Recorded ?Confirmed ?Last Taken ?Type amlodipine 2.5 mg tablet mg 12/20/24 Unknown History atorvastatin 40 mg tablet mg 12/20/24 Unknown History clopidogrel 75 mg tablet mg 12/20/24 Unknown History ezetimibe 10 mg tablet mg 12/20/24 Unknown History gabapentin 300 mg capsule mg 12/20/24 Unknown History levothyroxine 25 mcg tablet mcg 12/20/24 Unknown History metoprolol tartrate 50 mg tablet mg 12/20/24 Unknown History paroxetine HCl 40 mg tablet mg PO 12/20/24 Unknown History tamsulosin 0.4 mg capsule mg PO 12/20/24 Unknown History Allergies Allergy/AdvReac Type Severity Reaction Status Date / Time capatin Allergy Severe Swelling Uncoded 12/20/24 17:30 of Lip/Tongue/Throat Review of Systems Review of Systems: CONSTITUTIONAL: Denies malaise, chills, sweats, or fever. EYES: Denies visual changes. Reports bilateral irritation, redness, discharge. ENT: Reports rhinorrhea, congestion, sinus pain CARDIOVASCULAR: Denies chest pain, palpitations, or edema. RESPIRATORY: Reports cough. Denies dyspnea. GASTROINTESTINAL: Denies abdominal pain, nausea, vomiting, diarrhea SKIN: Denies rash or itching. MUSCULOSKELETAL: Denies myalgia. NEUROLOGIC: Denies headache. All systems reviewed & are unremarkable except as noted in HPI and below PMFSH Comments At time of signature, agree with nursing past medical, surgical, social and family history. There is no relevant family history pertinent to the presenting complaint Exam Narrative: GENERAL: Well-appearing, well-nourished, and in no acute distress. HEAD: Normocephalic EYES: PERRLA, conjunctivae and sclerae injected bilaterally with cloudy drainage noted ENT: Nares clear, turbinates edematous and erythematous. Mucous membranes moist. TM pearly bauman with dull light reflex bilaterally; no tragal tenderness. Oropharynx not erythematous without lesions. Tonsils not enlarged and without exudate, no drooling, no hoarseness, no trismus, uvula midline. NECK: Supple. No lymphadenopathy CHEST: Clear to auscultation, breath sounds equal. No wheezing, rhonchi, rales, or stridor. No respiratory distress, speaks in full sentences. Cough noted HEART: Regular rate and rhythm. No murmur heard. SKIN: Warm, dry, no rash. NEURO: Alert and oriented x3. PSYCH: Normal mood and affect Course Course Emergency Course: Patient is aware of diagnosis, understands and agrees to treatment plan. Anticipatory guidance given. Patient agrees to follow-up as directed and is aware of reasons to seek care at the emergency department. Portions of this record may have been created with voice recognition software Level of Care: Express Care Visit Vital Signs Vital signs: Reviewed. MDM - URI/Sore Throat MDM Narrative Medical decision making narrative: Differential diagnosis considered: Brary virus, strep pharyngitis, allergic rhinitis, upper respiratory tract infection, sinusitis, rhinosinusitis, nasopharyngitis. viral pharyngitis, otitis media, otitis externa, pneumonia, bronchitis, viral cough syndrome, viral syndrome, and influenza. Exam findings show no acute concerns or changes; patient is non-toxic appearing and is in no distress. Patient is appropriate for outpatient treatment and follow-up. Lab Data Attestation: I reviewed the patient's lab results. Critical Care Time Critical Care Time Critical Care Time: No Discharge Plan Discharge Clinical Impression: Acute bacterial sinusitis, Conjunctivitis Patient Disposition: Home Condition: Stable Instructions: Antibiotic Form, Sinusitis (ED) Additional Instructions: Take medication as prescribed Recommend antihistamine such as Benadryl at night time and Zyrtec or Becky dur ing the day Cough syrup may cause drowsiness; avoid driving or take it at night time. Also, recommend symptomatic treatment includes: rest, fluids, and increase humidity of the air at home. Recommend Acetaminophen as directed on the bottle to reduce fever, pain, headache. Avoid smoking/second-hand smoke. Please schedule a follow-up visit with your personal physician for further evaluation and treatment within 3-5days. Including recheck and discussion of your blood pressure. If your symptoms persist, change or worsen significantly before you can contact your personal physician then please, without delay, go to the emergency department for further evaluation. Patient Language: Malawian Prescriptions: New promethazine-DM 6.25-15 mg/5 mL syrup 5 ml PO Q4-6H PRN (Reason: cough) Qty: 120 0RF methylprednisolone [Medrol (Unruly)] 4 mg tablets,dose pack See Rx Instructions .ROUTE .COMPLEX Qty: 21 0RF Rx Instructions: orally per package directions amoxicillin-pot clavulanate 875-125 mg tablet 1 tablet PO Q12H 10 Days Qty: 20 0RF ipratropium bromide 21 mcg (0.03 %) spray,non-aerosol 2 spray NASAL TID PRN (Reason: nasal drainage) Qty: 30 0RF Rx Instructions: administer into each nostril No Action atorvastatin 40 mg tablet amlodipine 2.5 mg tablet clopidogrel 75 mg tablet levothyroxine 25 mcg tablet tamsulosin 0.4 mg capsule PO metoprolol tartrate 50 mg tablet gabapentin 300 mg capsule paroxetine HCl 40 mg tablet PO ezetimibe 10 mg tablet Follow-up/Referrals: Eddie,Jr Soria MD [Primary Care Provider] - Time of Disposition: 17:45
== END 2024-12-20 17:48 | disposition home or self-care (01) ==
PROVIDERS: Emergency Provider Nurse Practitioner; PCP Internal Medicine
DX: J01.90 Acute sinusitis, unspecified (principal); H10.9 Unspecified conjunctivitis; I20.9 Angina pectoris, unspecified; I10 Essential (primary) hypertension; E78.00 Pure hypercholesterolemia, unspecified; I25.2 Old myocardial infarction; Z95.5 Presence of coronary angioplasty implant and graft
CPT/HCPCS: 99203; G0463